=== PATIENT | female | born 1990 | race American Indian/Alaskan Native ===

== ENCOUNTER 2020-08-03 23:50 | Emergency (ER) | payer MEDICAID | END 2020-08-04 03:38 | disposition left against medical advice (07) | LOC: ED 23:50 | DX: R10.9 Unspecified abdominal pain (principal); R53.1 Weakness; Z53.21 Procedure and treatment not carried out due to patient leaving prior to being seen by health care provider ==

== ENCOUNTER 2021-06-27 12:52 | Emergency (ER) | payer MEDICAID ==
[2021-06-27 13:23] VITALS: BP 134/62
[2021-06-27] MEDS ORDERED: ACETAMINOPHEN 325 MG TAB PO ONE (13:37)
--- NOTE | 2021-06-27 13:37 | Emergency Department Report ---
ED Abdominal Pain HPI - General Chief Complaint: Abdominal Pain Stated Complaint: ABD/LOWER BACK PAIN Time Seen by Provider: 06/27/21 13:28 Source: patient Mode of arrival: Ambulatory Limitations: No Limitations - History of Present Illness Initial Comments: 30-year-old female with no significant past history Presents to the ER today with complaints of left upper quadrant abdominal pain. She states that her pain started this morning. Described as an intermittent sharp pain. She also reports associated low back pain worse on the right side and has also been sharp and intermittent. She denies any back pain. He had a work and notices the back pain more when she moves. Denies any radiation of her back pain down to her legs, bowel or bladder incontinence, saddle anesthesia, lower extremity numbness, tingling or weakness. She reports nausea but no vomiting. She denies any diarrhea or constipation. Her last bowel movement was yesterday and normal. She reports associated urinary frequency and urgency with no dysuria or hematuria. Last menstrual cycle was last week Wednesday. She is not currently on any control. Only abdominal surgery includes a . She denies any alcohol abuse. She denies any tobacco use. She states her pain currently is 4/10. She did not take anything at home for pain. MD Complaint: abdominal pain Severity scale (0 -10): 0 - Related Data Previous Rx's Medication Instructions Recorded Last Taken Type Famotidine [Pepcid] 20 mg PO BID #30 tablet 06/27/21 Unknown Rx Omeprazole Magnesium [PriLOSEC Otc] 20 mg PO QDAY #30 tablet. 06/27/21 Unknown Rx Allergies Allergy/AdvReac Type Severity Reaction Status Date / Time No Known Allergies Allergy Unverified 06/27/21 13:21 ED Review of Systems ROS: Stated complaint: ABD/LOWER BACK PAIN Other details as noted in HPI Comment: All other systems reviewed and negative Constitutional: denies: chills, fever Eyes: denies: eye pain, eye discharge, vision change ENT: denies: ear pain, throat pain, dental pain, hearing loss, epistaxis, congestion Respiratory: denies: cough, orthopnea, shortness of breath, SOB with exertion, SOB at rest, wheezing Cardiovascular: denies: chest pain, palpitations, dyspnea on exertion, edema, syncope, paroxysmal nocturnal dyspnea Gastrointestinal: abdominal pain, nausea. denies: vomiting, diarrhea, constipation, hematemesis, melena, hematochezia Genitourinary: urgency, frequency. denies: dysuria, hematuria, discharge, abnormal menses, dyspareunia Musculoskeletal: denies: back pain, joint swelling, arthralgia Skin: denies: rash, lesions Neurological: denies: headache, weakness, numbness, paresthesias, confusion, abnormal gait, vertigo Psychiatric: denies: anxiety, depression, auditory hallucinations, visual hallucinations, homicidal thoughts, suicidal thoughts Hematological/Lymphatic: denies: easy bleeding, easy bruising, swollen glands ED Past Medical Hx - Medications Home Medications: Home Medications Medication Instructions Recorded Confirmed Last Taken Type Famotidine [Pepcid] 20 mg PO BID #30 tablet 06/27/21 Unknown Rx Omeprazole Magnesium [PriLOSEC Otc] 20 mg PO QDAY #30 tablet. 06/27/21 Unknown Rx ED Physical Exam - General Limitations: No Limitations General appearance: alert, in no apparent distress - Head Head exam: Present: atraumatic, normocephalic, normal inspection - Eye Eye exam: Present: normal appearance, PERRL, EOMI Pupils: Present: normal accommodation - ENT ENT exam: Present: normal exam, mucous membranes moist, TM's normal bilaterally - Neck Neck exam: Present: normal inspection, full ROM - Respiratory Respiratory exam: Present: normal lung sounds bilaterally. Absent: respiratory distress, wheezes, rales, stridor - Cardiovascular Cardiovascular Exam: Present: regular rate, normal rhythm, normal heart sounds - GI/Abdominal GI/Abdominal exam: Present: soft. Absent: distended, tenderness, guarding, rebound - Back Exam Back exam: Present: normal inspection, full ROM. Absent: CVA tenderness (R), CVA tenderness (L) - Neurological Exam Neurological exam: Present: alert, oriented X3, CN II-XII intact, normal gait - Psychiatric Psychiatric exam: Present: normal affect, normal mood - Skin Skin exam: Present: intact ED Course Vital Signs 06/27/21 13:20 Temperature 98.7 F Pulse Rate 80 Respiratory 18 Rate Blood Pressure 134/62 [Left] O2 Sat by Pulse 98 Oximetry ED Medical Decision Making - Medical Decision Making Urinalysis shows nothing. hCG negative. On exam patient has a soft nontender abdomen. She has no CVA tenderness. She is currently resting comfortably and not in any acute distress. She is not toxic or ill-appearing. She is neurologically intact with normal gait. Given the pain is left upper quadrant, it could be related to gastritis or GERD. She reports no chest pain or shortness of breath. Suspect that her back pain could be related to lumbar strain from strenuous activity at work. Her exam, diagnostic testing and current condition do not suggest acute appendicitis, bowel obstruction, acute cholecystitis, bowel perforation, pancreatitis, severe diverticulitis, kidney stone sepsis or other significant pathology to warrant further testing, continued ED treatment, admission or surgical evaluation at this point. The patient's vital signs have been stable. Lab results, suspected diagnosis and treatment plan with patient. Patient expressed understanding of all instructions and agree with plan. Patient stable at time of discharge. Critical care attestation.: If time is entered above; I have spent that time in minutes in the direct care of this critically ill patient, excluding procedure time. ED Disposition Clinical Impression: Left upper quadrant abdominal pain, Low back pain, Lumbar strain Disposition: 01 HOME / SELF CARE / HOMELESS Is pt being admited?: No Does the pt Need Aspirin: No Condition: Stable Instructions: Gastritis, Adult, [id number], Lumbar Sprain, Abdominal Pain, Adult, [id number], Gastroesophageal Reflux Disease, Adult, [id number], Abdominal Pain (ED) Additional Instructions: I recommended Pepcid and Prilosec as prescribed for the left upper abdominal pain, this will treat for possible gastritis/GERD. You can take Tylenol [id number] to also help with pain including her low back pain. Follow-up closely with your primary care doctor. Return to the ER if your symptoms changes or worsens in any way. Prescriptions: Famotidine [Pepcid] 20 mg PO BID #30 tablet Omeprazole Magnesium [PriLOSEC Otc] 20 mg PO QDAY #30 tablet. Referrals: PRIMARY MD BUSTER [Primary Care Provider] - 3-5 Days [facility] [Provider Group] - 3-5 Days Forms: Work/School Release Form(ED) Time of Disposition: 15:54
[2021-06-27 15:32] LABS: Bilirubin,Urine NEG (Negative); Blood,Urine NEG (Negative); Color,Urine Yellow (Yellow); Mucus,Urine 3+ /HPF; Protein,Urine <15 mg/dL mg/dL (Negative); Urobilinogen,Urine < 2.0 mg/dL (<2.0)
[2021-06-27 15:39] LABS: HCG Qualitative,Urine Negative (Negative)
== END 2021-06-27 15:59 | disposition home or self-care (01) ==
LOC: ED 12:52
DX: S39.012A Strain of muscle, fascia and tendon of lower back, initial encounter (principal); X58.XXXA Exposure to other specified factors, initial encounter; Y93.89 Activity, other specified; Y92.89 Other specified places as the place of occurrence of the external cause; Y99.8 Other external cause status
CPT/HCPCS: 81001; 81025; 99283

== ENCOUNTER 2021-10-04 16:10 | Emergency (ER) | payer MEDICAID ==
[2021-10-04 16:26] VITALS: BP 112/74
--- NOTE | 2021-10-04 16:35 | Emergency Department Report ---
ED ENT HPI - General Chief complaint: Dental/Oral Stated complaint: TOOTHACHE Time Seen by Provider: 10/04/21 16:26 Source: patient Mode of arrival: Ambulatory Limitations: No Limitations - History of Present Illness Initial comments: Patient is a 30-year-old female presents emergency room with complaints of right upper dental pain that began 3 days ago. She reports that it has been approximately a year since she saw dentist. She states the last time she saw dentist she was advised that she needed to have fillings performed but she did not follow-up. She states that she is unable to see a dentist until after the holidays. She denies any facial swelling, difficulty swallowing, difficulty breathing, fever, chills, vomiting. No past medical history. denies any allergies medications - Related Data Previous Rx's Medication Instructions Recorded Last Taken Type Famotidine [Pepcid] 20 mg PO BID #30 tablet 06/27/21 Unknown Rx Omeprazole Magnesium [PriLOSEC Otc] 20 mg PO QDAY #30 tablet. 06/27/21 Unknown Rx Chlorhexidine Mouthwash [Peridex] 15 ml MM BID #1 bottle 10/04/21 Unknown Rx Naproxen 375 mg PO BID PRN #20 tablet 10/04/21 Unknown Rx Penicillin V Potassium 500 mg PO QID 7 Days #28 tablet 10/04/21 Unknown Rx Allergies Allergy/AdvReac Type Severity Reaction Status Date / Time No Known Allergies Allergy Verified 10/04/21 16:21 ED Dental HPI - General Chief complaint: Dental/Oral Stated complaint: TOOTHACHE Time Seen by Provider: 10/04/21 16:26 Source: patient Mode of arrival: Ambulatory Limitations: No Limitations - Related Data Previous Rx's Medication Instructions Recorded Last Taken Type Famotidine [Pepcid] 20 mg PO BID #30 tablet 06/27/21 Unknown Rx Omeprazole Magnesium [PriLOSEC Otc] 20 mg PO QDAY #30 tablet. 06/27/21 Unknown Rx Chlorhexidine Mouthwash [Peridex] 15 ml MM BID #1 bottle 10/04/21 Unknown Rx Naproxen 375 mg PO BID PRN #20 tablet 10/04/21 Unknown Rx Penicillin V Potassium 500 mg PO QID 7 Days #28 tablet 10/04/21 Unknown Rx Allergies Allergy/AdvReac Type Severity Reaction Status Date / Time No Known Allergies Allergy Verified 10/04/21 16:21 ED Review of Systems ROS: Stated complaint: TOOTHACHE Other details as noted in HPI Comment: All other systems reviewed and negative ED Past Medical Hx - Past Medical History Previous Medical History?: No - Surgical History Additional Surgical History: C SECTION - Medications Home Medications: Home Medications Medication Instructions Recorded Confirmed Last Taken Type Famotidine [Pepcid] 20 mg PO BID #30 tablet 06/27/21 Unknown Rx Omeprazole Magnesium [PriLOSEC Otc] 20 mg PO QDAY #30 tablet. 06/27/21 Unknown Rx Chlorhexidine Mouthwash [Peridex] 15 ml MM BID #1 bottle 10/04/21 Unknown Rx Naproxen 375 mg PO BID PRN #20 tablet 10/04/21 Unknown Rx Penicillin V Potassium 500 mg PO QID 7 Days #28 tablet 10/04/21 Unknown Rx ED Physical Exam - General Limitations: No Limitations General appearance: alert, in no apparent distress - Head Head exam: Present: atraumatic, normocephalic - Eye Eye exam: Present: normal appearance - ENT ENT exam: Present: mucous membranes moist, other (there are a few dental caries present, no induration or edema of the gumline or face, uvula is midine, no uvular edema or deviation, no trimus, no tongue elevation, no muffled voice, no submandibular edema) - Respiratory Respiratory exam: Absent: respiratory distress, accessory muscle use - Neurological Exam Neurological exam: Present: alert, oriented X3 - Psychiatric Psychiatric exam: Present: normal affect, normal mood - Skin Skin exam: Present: warm, dry, intact ED Course Vital Signs 10/04/21 16:23 Temperature 97.4 F L Pulse Rate 77 Respiratory 20 Rate Blood Pressure 112/74 [Right] O2 Sat by Pulse 97 Oximetry ED Medical Decision Making - Medical Decision Making Patient is a 30-year-old female presents emergency room with complaints of right upper dental pain that began 3 days ago. She reports that it has been approximately a year since she saw dentist. She states the last time she saw dentist she was advised that she needed to have fillings performed but she did not follow-up. She states that she is unable to see a dentist until after the holidays. She denies any facial swelling, difficulty swallowing, difficulty breathing, fever, chills, vomiting. No past medical history. denies any allergies medications. Vitals are normal. On exam: there are a few dental caries present, no induration or edema of the gumline or face, uvula is midine, no uvular edema or deviation, no trimus, no tongue elevation, no muffled voice, no submandibular edema. No clinical signs of significant dental abscess, facial cellulitis, facial abscess, Fredrick's at this time. Patient given prescription for medication discussed the importance of dental follow-up. Advised patient please take medication as prescribed. Increase your fluid intake. May use warm s alt water gargles and Anbesol [id number]. Follow-up with a dentist. It is very important you follow-up. Return to emergency room for any new or worsening symptoms. Critical care attestation.: If time is entered above; I have spent that time in minutes in the direct care of this critically ill patient, excluding procedure time. ED Disposition Clinical Impression: Dental caries, Dentalgia Disposition: 01 HOME / SELF CARE / HOMELESS Is pt being admited?: No Does the pt Need Aspirin: No Condition: Stable Additional Instructions: please take medication as prescribed. Increase your fluid intake. May use warm salt water gargles and Anbesol [id number]. Follow-up with a dentist. It is very important you follow-up. Return to emergency room for any new or worsening symptoms. Prescriptions: Naproxen 375 mg PO BID PRN #20 tablet PRN Reason: pain Penicillin V Potassium 500 mg PO QID 7 Days #28 tablet Chlorhexidine Mouthwash [Peridex] 15 ml MM BID #1 bottle Referrals: a, dentist [Other] - 3-5 Days Time of Disposition: 16:35 Print Language: [place]ENLAND[place]
== END 2021-10-04 16:53 | disposition home or self-care (01) ==
LOC: ED 16:10
DX: K02.9 Dental caries, unspecified (principal); Z98.890 Other specified postprocedural states
CPT/HCPCS: 99282

== ENCOUNTER 2021-10-05 04:30 | Emergency (ER) | payer MEDICAID ==
[2021-10-05 04:34] VITALS: BP 141/97
[2021-10-05] MEDS ORDERED: SODIUM CHLORIDE 0.9% 1000 ML 1,000 ML ONE (08:48)
[2021-10-05] MEDS ORDERED: NAPROXEN 500 MG TAB PO SCH (09:00)
--- NOTE | 2021-10-05 09:02 | Emergency Department Report ---
ED Recheck HPI - General Chief Complaint: Dental/Oral Stated Complaint: TOOTHACHE Time Seen by Provider: 10/05/21 08:24 Source: patient Mode of arrival: Ambulatory Limitations: No Limitations - History of Present Illness Initial Comments: This is a 30-year-old female nontoxic, well nourished in appearance, no acute signs of distress presents to the ED with c/o of toothache. Patient was seen last night and discharge per stated because pharmacy is closed she came into the ER for pain medication. Patient denies getting her medication prescriptions. Patient stated she will go to [facility] pharmacy "where" questions treat after discharge to refill her medications. Patient describes toothache as aching level of 8 out of 10. Patient denies any facial swelling. Patient denies any numbness, tingling, fever, chills, headache, stiff neck, abdominal pain, chest pain, shortness of breath. Patient denies any drug allergies . -: days(s) Associated Symptoms: none. denies: fever, chills, chest pain, shortness of breath, rash, malaise, nasuea, abdominal pain - Related Data Previous Rx's Medication Instructions Recorded Last Taken Type Famotidine [Pepcid] 20 mg PO BID #30 tablet 06/27/21 Unknown Rx Omeprazole Magnesium [PriLOSEC Otc] 20 mg PO QDAY #30 tablet. 06/27/21 Unknown Rx Chlorhexidine Mouthwash [Peridex] 15 ml MM BID #1 bottle 10/04/21 Unknown Rx Naproxen 375 mg PO BID PRN #20 tablet 10/04/21 Unknown Rx Penicillin V Potassium 500 mg PO QID 7 Days #28 tablet 10/04/21 Unknown Rx Allergies Allergy/AdvReac Type Severity Reaction Status Date / Time No Known Allergies Allergy Verified 10/04/21 16:21 ED Review of Systems ROS: Stated complaint: TOOTHACHE Other details as noted in HPI Comment: All other systems reviewed and negative Constitutional: denies: chills, fever Eyes: denies: eye pain, eye discharge, vision change ENT: dental pain. denies: ear pain, throat pain Respiratory: denies: cough, shortness of breath, wheezing Cardiovascular: denies: chest pain, palpitations Endocrine: no symptoms reported Gastrointestinal: denies: abdominal pain, nausea, diarrhea Genitourinary: denies: urgency, dysuria, discharge Musculoskeletal: denies: back pain, joint swelling, arthralgia Skin: denies: rash, lesions Neurological: denies: headache, weakness, paresthesias Psychiatric: denies: anxiety, depression Hematological/Lymphatic: denies: easy bleeding, easy bruising ED Past Medical Hx - Past Medical History Previous Medical History?: No - Surgical History Past Surgical History?: Yes Additional Surgical History: C SECTION - Social History Smoking Status: Never Smoker Substance Use Type: None - Medications Home Medications: Home Medications Medication Instructions Recorded Confirmed Last Taken Type Famotidine [Pepcid] 20 mg PO BID #30 tablet 06/27/21 Unknown Rx Omeprazole Magnesium [PriLOSEC Otc] 20 mg PO QDAY #30 tablet.dr 06/27/21 Unknown Rx Chlorhexidine Mouthwash [Peridex] 15 ml MM BID #1 bottle 10/04/21 Unknown Rx Naproxen 375 mg PO BID PRN #20 tablet 10/04/21 Unknown Rx Penicillin V Potassium 500 mg PO QID 7 Days #28 tablet 10/04/21 Unknown Rx ED Physical Exam - General Limitations: No Limitations General appearance: alert, in no apparent distress - Head Head exam: Present: atraumatic, normocephalic - Eye Eye exam: Present: normal appearance - Expanded ENT Exam Expanded Ear exam: Present: normal external inspection Mouth exam: Present: normal external inspection, tongue normal, other (Uvula midline. No tonsillar abscess. No dental abscess.). Absent: drooling, trismus, muffled voice Teeth exam: Present: dental tenderness # 1 - Dental Tenderness Throat exam: Positive: normal inspection. Negative: tonsillar erythema, tonsillomegaly, tonsillar exudate, R peritonsillar mass, L peritonsillar mass - Neck Neck exam: Present: normal inspection, full ROM. Absent: lymphadenopathy - Respiratory Respiratory exam: Absent: respiratory distress - Cardiovascular Cardiovascular Exam: Present: regular rate - Extremities Exam Extremities exam: Present: full ROM - Back Exam Back exam: Present: full ROM - Neurological Exam Neurological exam: Present: alert, oriented X3, normal gait - Psychiatric Psychiatric exam: Present: normal affect, normal mood - Skin Skin exam: Present: warm, dry, intact, normal color. Absent: rash ED Course Vital Signs 10/05/21 04:32 Temperature 98.5 F Pulse Rate 88 Respiratory 18 Rate Blood Pressure 141/97 O2 Sat by Pulse 100 Oximetry - Reevaluation(s) Reevaluation #1: 10/05/21 09:01 Patient is speaking in full sentences with no signs of distress noted. ED Recheck MDM - Medical Decision Making Patient received naproxen. Patient has medication that she will go to [facility] pharmacy to fill. Otherwise physical exam is unremarkable. Patient was instructed to follow-up with a dentist doctor in 3-5 days or if symptoms worsen and continue return to emergency room as soon as possible. At time of d ischarge, the patient does not seem toxic or ill in appearance. No acute signs of distress noted. Patient agrees to discharge treatment plan of care. No further questions noted by the patient. Critical care attestation.: If time is entered above; I have spent that time in minutes in the direct care of this critically ill patient, excluding procedure time. ED Disposition Clinical Impression: Dentalgia Disposition: 01 HOME / SELF CARE / HOMELESS Is pt being admited?: No Does the pt Need Aspirin: No Condition: Stable Additional Instructions: follow-up with a dentist doctor in 3-5 days or if symptoms worsen and continue return to emergency room as soon as possible. Referrals: PRIMARY CARE, [Primary Care Provider] - 3-5 Days [facility] [Outside] - 3-5 Days [facility] [Outside] - 3-5 Days Time of Disposition: 09:02
== END 2021-10-05 10:15 | disposition home or self-care (01) ==
LOC: ED 04:30
DX: K08.89 Other specified disorders of teeth and supporting structures (principal); Z98.890 Other specified postprocedural states
CPT/HCPCS: 99282; J7030; Q0162